=== PATIENT | male | born 1945 | race Caucasian/White ===

== ENCOUNTER → 2016-12-28 | Outpatient (CLI) | payer OTHER | LOC: MMPC 11:11 | PROVIDERS: ATTEND Internal Medicine | DX: J44.9 Chronic obstructive pulmonary disease, unspecified (principal); I10 Essential (primary) hypertension; J38.01 Paralysis of vocal cords and larynx, unilateral | CPT/HCPCS: 99213; G0463 ==

== ENCOUNTER 2019-05-18 12:17 | Inpatient (IN) ==
[2019-05-18] MEDS ORDERED: IPRATROPIUM/ALBUTEROL SULFATE 3 ML NEB NEB ONE (12:25)
[2019-05-18] MEDS ORDERED: Sodium Chloride 0.9% 1,000 ML PRIMARY IV ONE (12:25)
[2019-05-18 12:34] LABS: BASOPHILS # (AUTO) 0.02 10*3/UL; BASOPHILS % (AUTO) 0.2 % (0-1); EOSINOPHILS # (AUTO) 0.13 10*3/UL; EOSINOPHILS % (AUTO) 1.1 % (0-8); Hematocrit [HCT] 42.4 % (42.0-52.0); Hemoglobin [HGB] 14.5 g/dL (14.0-18.0); LYMPHOCYTES # (AUTO) 1.44 10*3/uL; MEAN CORPUSCULAR HGB CONC 34.2 g/dL (33-37); MEAN PLATELET VOLUME 11.4 FL (7.4-12.2); MONOCYTES # (AUTO) 1.49 10*3/UL (0.3-0.8); MONOCYTES % (AUTO) 12.8 % (5-15); NEUTROPHILS # (AUTO) 8.54 10*3/UL; NEUTROPHILS % (AUTO) 73.2 % (50-80); PLATELET MORPHOLOGY COMMENT NORMAL MORPHOLOGY (NORM); RBC MORPHOLOGY COMMENT NORMAL MORPHOLOGY (NORM); RED BLOOD COUNT 4.24 10^6/uL (4.70-6.10); WBC MORPHOLOGY COMMENT NORMAL MORPHOLOGY (NORM)
[2019-05-18 12:44] LABS: BUN/CREATININE RATIO 32.85 (6-20); SERUM ALBUMIN 4.4 g/dL (3.5-4.8)
[2019-05-18 12:55] LABS: VENOUS PH 7.33 (7.32-7.42)
--- NOTE | 2019-05-18 13:42 | EKG ---
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1945 Requested By: SERENA SPRINGER Order Number: [id number] Reading MD: Ji Singh Measurements Intervals [place] Rate: 141 P: GA: 0 QRS: 0 QRSD: 2 T: 258 QT: 300 QTc: 460 Interpretive Statements SINUS TACHYCARDIA WITH OCCASSIONAL VPCs LEFT ANTERIOR FASICULAR BLOCK POSSIBLE OLD ANTERIOR INFARCTION Compared to ECG 08/15/2018 15:07:31 Sinus rhythm no longer present Myocardial infarct finding still present present Electronically Signed On 05-18-2019 14:47:01 MDT by Ji Singh [id number]
[2019-05-18] MEDS ORDERED: LORazepam 2 MG/1 ML VIAL IVP ONE (14:02)
[2019-05-18] MEDS ORDERED: LIDOCAINE W/ SODIUM BICARB 0.5 ML SYR SUBD PRN (14:51)
[2019-05-18] MEDS ORDERED: ALBUTEROL SULFATE 2.5 MG/3 ML NEB PRN (14:51)
--- NOTE | 2019-05-18 15:43 | PDOC ---
HPI - History of Present Illness Date of Service: 05/18/19 Time of Service: 15:38 Chief Complaint: Cough and shortness of breath History of Present Illness: This is a very pleasant 74-year-old male with chronic left-sided vocal cord paralysis, COPD, tobacco abuse, who comes in stating today that he has had about 2 days of worsening shortness breath with cough. His cough is been more productive. He states it all started when he had received a notice from the city about his becky on the street or sidewalk that he had to cut back. He did that and it really left him taxed and tired. He notes that his shortness of breath has been progressive since then. Breathing treatments that he does at home have not helped. He is normally on oxygen at nighttime but did not try it during the day. He came in and was not found to be hypoxic in the emergency room, but felt oxygen administered was helping her feel better. He also felt that Ativan given in the emergency room helped him feel better as well. He had a chest x-ray that did not reveal any pneumonia. It was reported to me that he had a prior negative CTA workup for pulmonary embolism, but on my review of the record, he had a noncontrast CT scan of the chest done in September which did not reveal any acute findings in the lungs, but may have revealed possible soft tissue findings below the left vocal cord. I spoke with radiology regarding this, and it was felt that imaging was not best for the larynx and that we should consider repeating laryngoscopy. The patient does report a 7 pound weight loss over the last 6 months. I spoke with his and she feels that visually he looks more thin. The patient states he smokes 2 packs per day but quit 2 days ago. Past Medical History Medical History: 1. COPD with nocturnal oxygen requirement. 2. Left vocal cord paralysis, chronic. 3. Hypertension. 4. Hoarseness of voice, chronic Surgical History: Outside of laryngoscopy, the patient denies any prior surgical procedures. Pertinent Family History: He states his father had heart disease Past Social History: for 35 years, second marriage. Has children that are grown and described as healthy. Smokes 2 packs per day, drinks about half a pint of tequila daily. Tobacco Use: Current Every Day Smoker (2 packs per day) Do you dip or chew tobacco: No In the Past 12 Months, Have Used or Abuse Any of the Following Substance: None Alcohol Use: Heavy Medication / Allergies Home Medications: Home Medications Medication Instructions Recorded Confirmed RX: Benazepril HCl 1 tab PO DAILY #90 tab 04/30/16 benazepril 40 mg tablet 40 mg PO QDAY #90 tab 04/29/17 05/18/19 aspirin 81 mg tablet,delayed 81 mg PO QDAY tab 06/28/17 05/18/19 release cyanocobalamin (vit B-12) 2,500 2,500 mcg SL QDAY tab 06/28/17 05/18/19 mcg sublingual tablet multivitamin with iron-mineral 1 tab PO QDAY tab 06/28/17 05/18/19 tablet zolpidem 10 mg tablet 10 mg PO QHS #90 tab 03/13/19 05/18/19 RX: Atorvastatin Calcium 40 mg PO BEDTIME 05/18/19 05/18/19 Allergies/Adverse Reactions: Allergies Allergy/AdvReac Type Severity Reaction Status Date / Time No Known Allergies Allergy Verified 08/23/18 09:46 Review of Systems - Review of Systems All Systems: Reviewed & No Additional Complaints Except as Stated (I did a 12 point review systems and it was negative other than that discussed below and in the history of present illness.) - Constitutional Constitutional: REPORTS: Weight Loss (He thinks 7 pounds in the last 6 months.) - Respiratory Respiratory: REPORTS: Cough, Sputum, See HPI Exam - Vitals Vital Signs: Vital Signs Temperature 98.3 F Temperature Source Temporal Artery Scan Pulse Rate [Pulse Oximeter] 98 Pulse Rate 93 Respiratory Rate 201 Blood Pressure [Right Arm] 162/100 Blood Pressure [Left Arm] 177/96 Pulse Ox 99 Oxygen Flow Rate 3 Oxygen Delivery Method Nasal Cannula Height 5 ft 10 in Weight 133 lb 6.4 oz I'm having them retest the patient on room air to see if he is truly hypoxic on room air. - General General Appearance: No Acute Distress, Cooperative - Head Head Exam: Normal Inspection, Normocephalic, Atraumatic Additional Head Exam Details: Some signs of temporal wasting - Eye Eye Exam: POSITIVE: No Scleral Icterus - ENT ENT Exam: POSITIVE: Mucous Membranes Moist - Neck Neck Exam: No Tenderness, No Lymphadenopathy, No Thyromegaly, JVP is not Raised Additional Neck Exam Details: Very prominent anterior scalene muscles. - Respiratory Respiratory Exam: POSITIVE: Breathing Non Labored, Coarse Breath Sounds, Dull to Percussion - Cardiovascular Cardiovascular Exam: POSITIVE: RRR, No Murmur, No Clicks, No Gallops, No Rubs, No JVD - GI/Abdominal GI/Abdominal Exam: POSITIVE: Normal Bowel Sounds, Non Tender, Non Distended, Soft - Rectal Rectal Exam: POSITIVE: Deferred - External Exam: POSITIVE: Deferred Exam: POSITIVE: Deferred - Extremities Extremities Exam: POSITIVE: No Edema Present, No Cyanosis Present, Clubbing Present - Back Back Exam: POSITIVE: No CVA Tenderness - Neurological Neurological Exam: POSITIVE: Alert, Oriented x 3, No Facial Droop, Speech Intact / Clear, Moves All Extremities Equally - Psychiatric Psychiatric Exam: POSITIVE: Normal Affect, Normal Mood - Integumentary Integumentary Exam: POSITIVE: Normal Color, Warm, Dry, Intact Results - Labs CBC and BMP: 05/18/19 12:15 05/18/19 12:15 Additional Lab Results: Laboratory Results 05/18/19 05/18/19 05/18/19 12:15 12:15 12:15 WBC 11.65 H RBC 4.24 L Hgb 14.5 Hct 42.4 MCV 100.0 H MCH 34.2 H MCHC 34.2 RDW Std Deviation 47.9 RDW Coeff of Marco Antonio 13.3 Plt Count 296 MPV 11.4 Immature Gran % (Auto) 0.3 Neut % (Auto) 73.2 Lymph % (Auto) 12.4 [place] % (Auto) 12.8 Eos % (Auto) 1.1 Baso % (Auto) 0.2 Immature Gran # (Auto) 0.03 Neut # (Auto) 8.54 Lymph # (Auto) 1.44 [place]yer # (Auto) 1.49 H Eos # (Auto) 0.13 Baso # (Auto) 0.02 WBC Morphology Comment Normal morphology Plt Morphology Comment Normal morphology RBC Morph Comment Normal morphology D-Dimer VBG pH VBG pCO2 VBG HCO3 VBG Base Excess Sodium Potassium Chloride Carbon Dioxide Anion Gap BUN Creatinine Estimated GFR BUN/Creatinine Ratio Glucose Calculated Osmolality Calcium Total Bilirubin AST ALT Alkaline Phosphatase Troponin I < 0.012 C-Reactive Protein 1.2 H NT-Pro-B Natriuret Pep 289 Total Protein Albumin Globulin Albumin/Globulin Ratio 05/18/19 05/18/1919 12:15 12:15 12:44 WBC RBC Hgb Hct MCV MCH MCHC RDW Std Deviation RDW Coeff of Marco Antonio Plt Count MPV Immature Gran % (Auto) Neut % (Auto) Lymph % (Auto) [place]yer % (Auto) Eos % (Auto) Baso % (Auto) Immature Gran # (Auto) Neut # (Auto) Lymph # (Auto) [place]yer # (Auto) Eos # (Auto) Baso # (Auto) WBC Morphology Comment Plt Morphology Comment RBC Morph Comment D-Dimer 290 VBG pH 7.33 VBG pCO2 51 VBG HCO3 27 H VBG Base Excess 1 Sodium 135 Potassium 4.4 Chloride 100 Carbon Dioxide 26 Anion Gap 9 BUN 23 H Creatinine 0.7 Estimated GFR BUN/Creatinine Ratio 32.85 H Glucose 94 Calculated Osmolality 283.0 Calcium 9.8 Total Bilirubin 0.8 AST 31 ALT 22 Alkaline Phosphatase 66 Troponin I C-Reactive Protein NT-Pro-B Natriuret Pep Total Protein 7.8 Albumin 4.4 Globulin 3.4 Albumin/Globulin Ratio 1.20 L - EKG Data -: EKG Interpreted by Me Rate: Tachycardia EKG Shows Normal: Sinus Rhythm - EKG Data EKG Interpretation: Other (Occasional PVC) - Imaging Status: Image Reviewed by Me (chest x-ray, on my view, severe emphysema) Assessment and Plan - Patient Problems (1) COPD exacerbation Current Visit: Yes Status: Acute Code(s): J44.1 - Chronic obstructive pulmonary disease with (acute) exacerbation (2) Loss of weight Current Visit: Yes Status: Acute Code(s): R63.4 - Abnormal weight loss (3) Paralysis of vocal cords and larynx of one side Current Visit: Yes Status: Chronic Onset Date: 08/16/15 (4) Hoarseness of voice Current Visit: Yes Status: Chronic Onset Date: 04/30/16 Code(s): R49.0 - Dysphonia (5) Hypertension Current Visit: Yes Status: Chronic Onset Date: 12/28/11 Code(s): I10 - Essential (primary) hypertension Qualifiers: Hypertension type: essential hypertension Qualified Code(s): I10 - Essential (primary) hypertension (6) Sinus tachycardia Current Visit: Yes Status: Acute Code(s): R00.0 - Tachycardia, unspecified - Assessment / Plan Additional Assessment/Plan Details: admit inpatient The patient is on Trilogy so we'll continue that. Add albuterol as well. Zithromax 500 mg IV every 24 hours assess pneumovax and influenza vaccine status prednisone, 40 mg daily for 5 days oxygen to maintain oxygen saturations at 91% If CO2 retention, will consider BiPaP use if indicated clinically, but initial blood count shows a normal range CO2 level code status is DNR check CBC with diff in AM Respiratory panel negative if there is no improvement in patient condition, consider possibility of PE in this case, ruled out by CTA of chest, non-coronary--I will go ahead and get that now based on his sinus tachycardia with these symptoms despite a normal d-dimer. From risk stratification standpoint, 1 out of every 4 patients with COPD exacerbation and she has an underlying pulmonary embolism. smoking cessation education. Patient states he quit 2 days ago DVT prophylaxis chemical We'll try to arrange an outpatient visit with Dr. Petersen to repeat laryngoscopy to look at this area of concern on my review the CT scan in September 2018. We'll consider starting Cardizem for hypertension and tachycardia.
--- NOTE | 2019-05-18 15:51 | DI ---
CT CTA Chest Non-Coronary WWO,05/18/2019 3:10 PM: Clinical History: Shortness of breath, COPD question pulmonary embolism. Previous Exam: None at this facility. Findings: Multiple helically acquired CT images are obtained through the chest following intravenous administra tion of 65 cc of Omnipaque 300, and demonstrate mild diffuse COPD. This is unchanged from the prior e xam. The upper abdomen is unremarkable. Degenerative changes of the spine are seen. Pulmonary arteries are normal without filling defect or truncation to suggest pulmonary embolism. Impression: No evidence of pulmonary embolism. Stable COPD.
[2019-05-18] MEDS ORDERED: DILTIAZEM CD 180 MG CAP PO ONE (15:52)
[2019-05-18] MEDS: BENAZEPRIL HCL 20 MG TABLET PO SCH (16:35)
[2019-05-18] MEDS: predniSONE Tab 20 MG TAB PO SCH (16:36)
[2019-05-18] MEDS: ALBUTEROL SULFATE 2.5 MG/3 ML NEB SCH (19:09)
[2019-05-18] MEDS ORDERED: ZOLPIDEM 10 MG TABLET PO SCH (21:00)
[2019-05-18] MEDS ORDERED: ATORVASTATIN 40 MG TABLET PO SCH (21:00)
--- NOTE | 2019-05-19 03:52 | PDOC ---
Dyspnea HPI - General Chief Complaint: Dyspnea Stated Complaint: DYSPNEA Date Seen by Provider: 05/18/19 Time Seen by Provider: 12:15 Source: POSITIVE: Patient, Spouse, EMS Exam Limitations: POSITIVE: No limitations Treatment Prior to Arrival: REPORTS: Oxygen, Albuterol Neb Treatment Nurse's Notes Reviewed & Considered: Yes EMS Report Reviewed & Considered: Verbal - History of Present Illness Initial Comments: The patient is a 74-year-old male who arrives to the emergency room by ambulance. Ambulance was summoned by his . Patient complains of a 2-3 day history of progressive dyspnea. Patient does have a long-standing history of tobacco abuse and continues to smoke 1-1/2-2 packs of cigarettes per day. Patient states that he is on oxygen supplementation at night. Paramedics administered an albuterol treatment by nebulization. Patient states that he is on 2-1/2 L of oxygen at night. Patient has a history of partial vocal cord paralysis with chronic hoarseness. Patient states he has been evaluated by ENT for this problem and he states "they don't know why "he has partial vocal cord paralysis. Patient denies any chest pain. Mild mostly nonproductive cough. No fevers or chills. He denies any history of surgery. History of hypertension. Denies any known cardiac problems. Patient states that he "stopped smoking 2 days ago" because of his shortness of breath. Body Location Affected: REPORTS: Chest (Dyspnea) Timing: REPORTS: Gradual, Getting Worse Duration: >24 hours (2-3 days) Severity: Moderate Quality: REPORTS: Other (Patient denies any chest or other pain) Initiating Event: DENIES: Upper Respiratory Illness, Out of Medications, Sports, Exercise, Aspiration, Choking, Allergy, Exposure - Smoke, Exposure - Mold, Exposure - Other Allergen Context: REPORTS: Activity Exacerbated By: REPORTS: Exertion Associated Symptoms: DENIES: Fever, Chills, Sweating, Chest Pain, Chest Discomfort, Left Chest, Right Chest, Central Chest, Chest Heaviness, Chest Tightness, Painful Breathing, Radiation to Back, Radiation to Jaw, Radiation to Arm, Bloody Cough, Productive Cough, Heart Racing, Leg Pain, Calf Pain, Ankle Swelling, Leg Swelling, Dizziness, Light-Headedness, Anxiety, Tingling - Hands, Tingling - Face, Muscle Spasms - Hands, Muscle Spasms - Feet Similar Symptoms Previously: No Recently seen/treated/hospitalized: No Any Prior Injuries Related to Current Complaint?: No - Patient Home Medications Home Medications: Home Medications Benazepril HCl 1 tab PO DAILY #90 tab 04/30/16 benazepril 40 mg tablet 40 mg PO QDAY #90 tab 04/29/17 aspirin 81 mg tablet,delayed release 81 mg PO QDAY tab 06/28/17 cyanocobalamin (vit B-12) 2,500 mcg sublingual tablet 2,500 mcg SL QDAY tab 06/28/17 multivitamin with iron-mineral tablet 1 tab PO QDAY tab 06/28/17 zolpidem 10 mg tablet 10 mg PO QHS #90 tab 03/13/19 Atorvastatin Calcium 40 mg PO BEDTIME 05/18/19 - Patient Allergies Allergies/Adverse Reactions: Allergies Allergy/AdvReac Type Severity Reaction Status Date / Time No Known Allergies Allergy Verified 05/18/19 21:12 Past Medical History - heen HEENT History: Other (please comment) Additional HEENT History: Vocal cord paralyzed - hoarse throat. Cardiovascular History: Hypertension Respiratory History: Other (please comment) Additional Respiratory History: smoker, Gastrointestinal History: Denies History Genitourinary History: Denies History Endocrine History: Denies History Musculoskeletal History: Denies History Neurological History: Denies History Blood Disorders: Denies History Psychiatric History: Denies History History of Sexually Transmitted Diseases: No Male Reproductive History: Denies History Cancer History: Denies History In Past Year Been Physically Harmed or Verbally Threatened: No History of MDRO: No History of Other Communicable Diseases: No Tobacco Use: Current Every Day Smoker (2 packs per day) Type of alcohol normally used: Hard Liquor In the Past 12 Months, Have Used or Abuse Any Substance: None Previous Surgical History: Yes Type / Date of Surgery: left arm Significant Family History: No pertinent family hx Past Medical History Reviewed: Reviewed - No Changes ROS - Limitations ROS Limitations: No Limitations Constitution: REPORTS: Denies Symptoms Cardiovascular: REPORTS: Denies Cardiac Symptoms Respiratory: REPORTS: Shortness Of Breath Neurological: REPORTS: Denies Neuro Symptoms Gastrointestinal: REPORTS: Denies GI Symptoms Endocrine: REPORTS: Denies Symptoms Musculoskeletal: REPORTS: Denies MS Symptoms Genitourinary: REPORTS: Denies Symptoms ENT: REPORTS: Other (Chronic hoarseness due to partial vocal cord paralysis) Skin: REPORTS: Denies Skin Symptoms Lympathic: REPORTS: Denies Lympathic Symptoms Immunologic: POSITIVE: Denies Symptoms Psychiatric: POSITIVE: Denies Psych Symptoms Dyspnea Physical Exam - General Appearance General Appearance: REPORTS: Alert, Cooperative, No Acute Distress, No Evidence of Trauma - HEENT HEENT: POSITIVE: Head Inspection Nml, Eyes Inspection Nml, Ears Inspection Nml, Nose Inspection Nml, Oral/Dental Inspect. Nml, Pharynx Inspect. Nml, PERRL, EOMI - Neck Neck: REPORTS: Normal Inspection, No Carotid Bruit - Respiratory Respiratory: REPORTS: No Pleuritic Chest Pain, Speaks Full Sentences, No Pain on Inspiration, Decreased Air Movement. DENIES: Breath Sounds Normal (Breath sounds quite distant), Respiratory Distress, Fatigue, Wheezes, Rales, Rhonchi, Prolonged Expirations, Accessory Muscle Use, Retractions, Splinting, Dull on Percussion, Chest Wall Tenderness, Speaks Broken Sentences, Stridor, Respiratory Failure - Cardiovascular Cardiovascular: REPORTS: Regular Rate and Rhythm, Heart Sounds Normal, Equal Pulses, Strong Pulses, No Murmur, No Gallop, No Friction Rub, No JVD Peripheral Pulses: Radial (R): 2+, Radial (L): 2+ - Abdomen Abdomen: Soft: (All Quadrants), Normal Bowel Sounds: (All Quadrants), Denies Tenderness: (All Quadrants), No Splenomegaly: (All Quadrants), No Hepatomegaly: (All Quadrants), No Guarding: (All Quadrants), No Rebound: (All Quadrants), No Palpable Pulse: (All Quadrants), No Palpabale Mass: (All Quadrants), No Distention: (All Quadrants), No Rigidity: (All Quadrants) - Skin Skin: REPORTS: Intact, Normal For Race, Warm, Dry, No Rash - Extremities Extremity: Non-Tender: (All Extremities), Normal ROM: (All Extremities), Normal Inspection: (All Extremities) - Neurological / Psychological Neurological: POSITIVE: Affect Apporpriate, Oriented X3, basting cleaner Normal As Tested, Motor Normal, Sensation Normal Dyspnea Progress - Results Reviewed by me Xrays/CTs/US Reviewed by me: Yes Discussed with Radiologist: No Radiology Findings: Chest x-ray shows emphysema. Review of old records shows that the patient had a CT scan of the chest without contrast done 10/04/2018 which showed pulmonary artery hypertension, bolus emphysema and chronic interstitial fibrosis Lab Results Reviewed by Me: Yes CBC and BMP: 05/18/19 12:15 05/18/19 12:15 Lab Results:: Laboratory Results 05/18/19 05/18/19 05/18/19 12:15 12:15 12:15 WBC 11.65 H RBC 4.24 L Hgb 14.5 Hct 42.4 MCV 100.0 H MCH 34.2 H MCHC 34.2 RDW Std Deviation 47.9 RDW Coeff of Marco Antonio 13.3 Plt Count 296 MPV 11.4 Immature Gran % (Auto) 0.3 Neut % (Auto) 73.2 Lymph % (Auto) 12.4 [place] % (Auto) 12.8 Eos % (Auto) 1.1 Baso % (Auto) 0.2 Immature Gran # (Auto) 0.03 Neut # (Auto) 8.54 Lymph # (Auto) 1.44 [place] # (Auto) 1.49 H Eos # (Auto) 0.13 Baso # (Auto) 0.02 WBC Morphology Comment Normal morphology Plt Morphology Comment Normal morphology RBC Morph Comment Normal morphology D-Dimer VBG pH VBG pCO2 VBG HCO3 VBG Base Excess Sodium Potassium Chloride Carbon Dioxide Anion Gap BUN Creatinine Estimated GFR BUN/Creatinine Ratio Glucose Calculated Osmolality Calcium Total Bilirubin AST ALT Alkaline Phosphatase Troponin I < 0.012 C-Reactive Protein 1.2 H NT-Pro-B Natriuret Pep 289 Total Protein Albumin Globulin Albumin/Globulin Ratio 05/18/19 05/18/19 05/18/19 12:15 12:15 12:44 WBC RBC Hgb Hct MCV MCH MCHC RDW Std Deviation RDW Coeff of Marco Antonio Plt Count MPV Immature Gran % (Auto) Neut % (Auto) Lymph % (Auto) [place] % (Auto) Eos % (Auto) Baso % (Auto) Immature Gran # (Auto) Neut # (Auto) Lymph # (Auto) [place] # (Auto) Eos # (Auto) Baso # (Auto) WBC Morphology Comment Plt Morphology Comment RBC Morph Comment D-Dimer 290 VBG pH 7.33 VBG pCO2 51 VBG HCO3 27 H VBG Base Excess 1 Sodium 135 Potassium 4.4 Chloride 100 Carbon Dioxide 26 Anion Gap 9 BUN 23 H Creatinine 0.7 Estimated GFR BUN/Creatinine Ratio 32.85 H Glucose 94 Calculated Osmolality 283.0 Calcium 9.8 Total Bilirubin 0.8 AST 31 ALT 22 Alkaline Phosphatase 66 Troponin I C-Reactive Protein NT-Pro-B Natriuret Pep Total Protein 7.8 Albumin 4.4 Globulin 3.4 Albumin/Globulin Ratio 1.20 L - Patient's Progress Pain Medication Addressed: POSITIVE: Not Applicable School/Work Release Addressed: POSITIVE: Not Applicable Re-Examine Time: 13:30 Re-Examine Comment: Patient given a DuoNeb nebulizer treatment in the emergency room without much effect. Patient quite anxious and patient given a milligram of Ativan. Patient and advised of radiologic and laboratory studies. 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 Case discussed with hospitalist on-call, who has admitted the patient for further evaluation and treatment. Status: POSITIVE: Unchanged, Re-Examined Air Movement: POSITIVE: Fair - Consult Consulting MD will see pt:: POSITIVE: [facility] [place] Admit Counseled: POSITIVE: Patient, Family (), RE: Lab Results, RE: Radiology Results, RE: DX, RE: Need for F/U Patient Care Time - Estimated PCT Patient Care Time (In Minutes): 55 Vital Signs - VS Reviewed Vital Signs Reviewed: Yes Discharge Clinical Impression: Chronic obstructive lung disease Discharge Disposition: Admit to Inpatient Condition: Stable Patient Problem(s) Reviewed: Yes Date Decision to Admit to Inpatient: 05/18/19 Time Decision to Admit to Inpatient: 13:30
[2019-05-19 04:46] LABS: VENOUS PCO2 43.8 mmHg (45-55); VENOUS PH 7.36 (7.32-7.42)
[2019-05-19 05:04] LABS: BASOPHILS # (AUTO) 0 10*3/UL; BASOPHILS % (AUTO) 0 % (0-1); EOSINOPHILS # (AUTO) 0 10*3/UL; EOSINOPHILS % (AUTO) 0 % (0-8); Hematocrit [HCT] 34.5 % (42.0-52.0); Hemoglobin [HGB] 11.9 g/dL (14.0-18.0); LYMPHOCYTES # (AUTO) 0.77 10*3/uL; MEAN CORPUSCULAR HGB CONC 34.5 g/dL (33-37); MEAN CORPUSCULAR VOLUME 100.3 FL (80-90); MEAN PLATELET VOLUME 11.2 FL (7.4-12.2); MONOCYTES # (AUTO) 0.72 10*3/UL (0.3-0.8); MONOCYTES % (AUTO) 14.1 % (5-15); NEUTROPHILS # (AUTO) 3.62 10*3/UL; NEUTROPHILS % (AUTO) 70.7 % (50-80); RED BLOOD COUNT 3.44 10^6/uL (4.70-6.10)
[2019-05-19 05:19] LABS: PLATELET MORPHOLOGY COMMENT NORMAL MORPHOLOGY (NORM); RBC MORPHOLOGY COMMENT NORMAL MORPHOLOGY (NORM); WBC MORPHOLOGY COMMENT NORMAL MORPHOLOGY (NORM)
[2019-05-19 05:20] LABS: BLOOD UREA NITROGEN 21 mg/dL (7-22)
[2019-05-19] MEDS: ALBUTEROL SULFATE 2.5 MG/3 ML NEB SCH ×4 (06:28→14:33)
[2019-05-19] MEDS ORDERED: UMECLIDIN INH SCH (07:00)
[2019-05-19] MEDS ORDERED: FLUTICASONE INH SCH (07:00)
[2019-05-19] MEDS ORDERED: VILANTER INH SCH (07:00)
[2019-05-19] MEDS ORDERED: Multivitamin Tab 1 TAB PO SCH (09:00)
[2019-05-19] MEDS ORDERED: CYANOCOBALAMIN (VITAMIN B-12) 1,000 MCG TABLET.ER PO SCH (09:00)
[2019-05-19] MEDS ORDERED: ENOXAPARIN SODIUM 40 MG/0.4 ML SYRINGE SUBCUT SCH (09:00)
[2019-05-19] MEDS ORDERED: DILTIAZEM CD 180 MG CAP PO SCH (09:00)
[2019-05-19] MEDS: BENAZEPRIL HCL 20 MG TABLET PO SCH (09:28)
[2019-05-19] MEDS: predniSONE Tab 20 MG TAB PO SCH (09:28)
[2019-05-19 12:30] VITALS: BP 123/48; TEMP 98.2
[2019-05-19 14:34] VITALS: RESP 18
--- NOTE | 2019-05-19 14:49 | DI ---
PA /LATERAL CHEST, 05/18/2019 12:50 PM : Clinical History: Dyspnea. Previous Exam: 08/15/2018. Soft Tissues: No acute soft tissue abnormality. Bones: Compression fracture of T12, unchanged from the prior exam. Osteoporosis. Heart: Heart Size: Normal. Vascular Pedicle Width: Normal. Azygous Vein: Normal size. Vascular Flow P attern:Normal. Pulmonary Arteries: Mild pulmonary arterial hypertension. Lungs: No infiltrates. Centrilobular emphysema. Interstitial Johnathan B lines present in the costophren ic angles indicating chronic interstitial pulmonary fibrosis. Effusion(s): None. Mediastinum: Normal. Nodules: No pulmonary nodules. Readin. No acute infiltrate or effusion. 2. Centrilobular emphysema with chronic interstitial pulmonary fibrosis and mild pulmonary arterial hypertension. 3. Severe osteoporosis.
[2019-05-19] MEDS ORDERED: ASPIRIN EC 81 MG TABLET PO SCH (16:00)
--- NOTE | 2019-05-19 16:09 | DCSUMMARY ---
Hospitalization Summary Admit Date: 05/18/2019 Discharge Date: 05/19/19 Primary Diagnosis:: COPD exacerbation, improved Hospital Course: This very pleasant 74 year male with unknown left vocal cord paralysis, chronic, long-term smoker 2 packs per day, states he quit 2 days ago, who came in with shortness breath and cough. His cough is been a little more productive. He was not hypoxic in the emergency room but because of his shortness of breath, increased from production, human 2 out of 3 criteria for severe COPD exacerbation and he was admitted. I initially thought that he would need an inpatient stay at 48 hours, but he has nocturnal oxygen at home and he was very insistent to go home today. Although I would like to keep him overnight, my feeling overall a set patient likely wouldn't stay regardless of my recommendations and so we devised a plan to give him one more dose of IV Zithromax today, he said prednisone today. He'll do 5 days total of Zithromax 500 mg daily, and prednisone at 40 mg daily for a total of 5 days. 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 I spoke to the radiologist and it was their feeling that in order to definitively find out whether or not there was a mass, the patient would need direct laryngoscopy. We set up an appointment with gear hobber operator here. The patient was at intermediate risk for pulmonary emboli, and based on this, we proceeded to do CT scan and see CTA) to look for blood clot. It was negative. The CT scan done in September was a noncontrast study. Today, no complaints of chest pain, shortness of breath, nausea or vomiting, the patient would like to go home. Assessment and Plan: 1. As per discharge assessments noted 2. Disposition: Patient is discharged home. 3. Condition on discharge, stable and improved. 4. Diet: regular diet 5. Activities: resume normal activities, and recommend oxygen at all times for the next week or so 6. Follow-Up: 1. Dr. Harrington next week 2. Ear, Nose and throat and the next couple weeks 7. Medications at the Time of Discharge: 8. Time, care, counseling and coordination of care for this discharge is greater than 30 minutes. This report was transcribed using [employer] voice recognition. Despite editing, there may be grammatical and/or typographical errors in this traffic i manager report due to the limitations inherent with voice activated and speech recognition software.e Exam - Vitals Vital Signs: Vital Signs Temperature 98.2 F Temperature Source Oral Pulse Rate [Pulse Oximeter] 90 Pulse Rate [forehead] 90 Pulse Rate 84 Respiratory Rate 18 Blood Pressure [Right Arm] 123/48 Blood Pressure [Left Arm] 146/73 Pulse Ox [forehead] 90 Pulse Ox 96 Oxygen Flow Rate [forehead] 1 Oxygen Flow Rate 2 Oxygen Delivery Method [ Nasal Cannula forehead] Oxygen Delivery Method Room Air Height 5 ft 10 in Weight 133 lb - General General Appearance: No Acute Distress, Cooperative - Head Head Exam: Normal Inspection, Normocephalic, Atraumatic - Eye Eye Exam: POSITIVE: No Scleral Icterus - ENT ENT Exam: POSITIVE: Mucous Membranes Moist - Neck Neck Exam: JVP is not Raised - Respiratory Respiratory Exam: POSITIVE: Breathing Non Labored, Decreased Breath Sounds - Cardiovascular Cardiovascular Exam: POSITIVE: RRR, No Murmur, No Clicks, No Gallops, No Rubs, No JVD - GI/Abdominal GI/Abdominal Exam: POSITIVE: Normal Bowel Sounds, Non Tender, Non Distended, Soft - Extremities Extremities Exam: POSITIVE: No Edema Present, No Cyanosis Present, Clubbing Present Additional Extremities Exam Details: Has palmar erythema - Neurological Neurological Exam: POSITIVE: Alert, Oriented x 3, No Facial Droop, Speech Intact / Clear, Moves All Extremities Equally Data Peritnent Studies: Laboratory Results 05/19/19 05/19/19 05/19/19 04:30 04:30 04:36 WBC 5.12 RBC 3.44 L Hgb 11.9 L Hct 34.5 L MCV 100.3 H MCH 34.6 H MCHC 34.5 RDW Std Deviation 47.4 RDW Coeff of Marco Antonio 13.3 Plt Count 248 MPV 11.2 Immature Gran % (Auto) 0.2 Neut % (Auto) 70.7 Lymph % (Auto) 15.0 Lassen % (Auto) 14.1 Eos % (Auto) 0 Baso % (Auto) 0 Immature Gran # (Auto) 0.01 Neut # (Auto) 3.62 Lymph # (Auto) 0.77 Lassen # (Auto) 0.72 Eos # (Auto) 0 Baso # (Auto) 0 WBC Morphology Comment Normal morphology Plt Morphology Comment Normal morphology RBC Morph Comment Normal morphology VBG pH 7.36 VBG pCO2 43.8 L VBG HCO3 24.9 VBG Base Excess 0 Sodium 131 L Potassium 4.9 Chloride 100 Carbon Dioxide 24 Anion Gap 7 BUN 21 Creatinine 0.6 L Estimated GFR Connie Cleaner BUN/Creatinine Ratio 35.00 H Glucose 121 H Calculated Osmolality 275.0 Calcium 9.2 Procedures: [address] [facility] [place] [address] PH: [phone]: [phone] FAX: [phone] ~DIAGNOSTIC IMAGING REPORT~ Patient: Rexius,Jorge A L : 1945 Sex: M Age: 74 Exam Name: CT CTA Chest Non-Coronary WWOExam Date: 05/18/19 Report # : [id number] CPT Code: 98071 EMR/MR #: [id number] Ordering: RAMIRO RUEDA Admiting: RAMIRO RUEDA DO Primary: Fidel Harrington MD Attending: RAMIRO RUEDA DO Signed CT CTA Chest Non-Coronary WWO,05/18/2019 3:10 PM: Clinical History: Shortness of breath, COPD question pulmonary embolism. Previous Exam: None at this facility. Findings: Multiple helically acquired CT images are obtained through the chest following intravenous administration of 65 cc of Omnipaque 300, and demonstrate mild diffuse COPD. This is unchanged from the prior exam. The upper abdomen is unremarkable. Degenerative changes of the spine are seen. Pulmonary arteries are normal without filling defect or truncation to suggest pulmonary embolism. Impression: No evidence of pulmonary embolism. Stable COPD. Dictated By: 05/18/19 1544 HERMELINDA FELIX MD. Signed By: 05/18/19 1551 HERMELINDA FELIX MD. Patient Problems - Patient Problem List (1) COPD exacerbation Current Visit: Yes Status: Acute Code(s): J44.1 - Chronic obstructive pulmonary disease with (acute) exacerbation Category: Medical (2) Loss of weight Current Visit: Yes Status: Acute Code(s): R63.4 - Abnormal weight loss Category: Medical (3) Paralysis of vocal cords and larynx of one side Current Visit: Yes Status: Chronic Onset Date: 08/16/15 Comment: left Category: Medical (4) Hoarseness of voice Current Visit: Yes Status: Chronic Onset Date: 04/30/16 Code(s): R49.0 - Dysphonia Category: Medical (5) Hypertension Current Visit: Yes Status: Chronic Onset Date: 12/28/11 Code(s): I10 - Essential (primary) hypertension Qualifiers: Hypertension type: essential hypertension Qualified Code(s): I10 - Essential (primary) hypertension Category: Medical (6) Sinus tachycardia Current Visit: Yes Status: Acute Code(s): R00.0 - Tachycardia, unspecified Category: Medical (7) Laryngeal mass Current Visit: Yes Status: Suspected Code(s): J38.7 - Other diseases of larynx Category: Medical
[2019-05-19 17:45] VITALS: O2SAT 93
== END 2019-05-19 04:35 | disposition home or self-care (01) | DRG 192 ==
LOC: ER 12:17 → MED/SURG 12:17 → OBSVTOIN 14:03 → MED/SURG 14:20
PROVIDERS: ADMIT Family Medicine; ATTEND Family Medicine

== ENCOUNTER 2019-06-05 10:53 | Inpatient (IN) ==
[2019-06-05] MEDS ORDERED: IPRATROPIUM/ALBUTEROL SULFATE 3 ML NEB NEB ONE (10:59)
[2019-06-05] MEDS ORDERED: DOXYCYCLINE HYCLATE 100 MG CAPSULE PO ONE (11:03)
[2019-06-05] MEDS ORDERED: methylPREDNISolone 125 MG/2 ML VIAL IVP ONE (11:03)
[2019-06-05 11:08] LABS: BASOPHILS # (AUTO) 0.02 10*3/UL; BASOPHILS % (AUTO) 0.2 % (0-1); EOSINOPHILS # (AUTO) 0.11 10*3/UL; Hematocrit [HCT] 39.4 % (42.0-52.0); Hemoglobin [HGB] 13.5 g/dL (14.0-18.0); LYMPHOCYTES # (AUTO) 1.59 10*3/uL; MEAN CORPUSCULAR HGB CONC 34.3 g/dL (33-37); MONOCYTES # (AUTO) 1.43 10*3/UL (0.3-0.8); MONOCYTES % (AUTO) 13.1 % (5-15); NEUTROPHILS # (AUTO) 7.74 10*3/UL; NEUTROPHILS % (AUTO) 70.9 % (50-80)
[2019-06-05 11:09] LABS: PLATELET MORPHOLOGY COMMENT NORMAL MORPHOLOGY (NORM); RBC MORPHOLOGY COMMENT NORMAL MORPHOLOGY (NORM); WBC MORPHOLOGY COMMENT NORMAL MORPHOLOGY (NORM)
[2019-06-05 11:17] LABS: SERUM ALBUMIN 4.1 g/dL (3.5-4.8)
[2019-06-05 11:40] LABS: VENOUS PH 7.33 (7.32-7.42)
[2019-06-05] MEDS ORDERED: ALBUTEROL SULFATE 2.5 MG/3 ML NEB PRN ×2 (14:09→17:55)
[2019-06-05] MEDS ORDERED: LIDOCAINE W/ SODIUM BICARB 0.5 ML SYR SUBD PRN ×2 (14:09→17:55)
[2019-06-05] MEDS ORDERED: LORazepam 1 MG TABLET PO PRN (14:47)
[2019-06-05] MEDS ORDERED: IPRATROPIUM/ALBUTEROL SULFATE 3 ML NEB NEB SCH (15:00)
[2019-06-05] MEDS ORDERED: CLONAZEPAM 0.25 MG PO SCH (15:00)
[2019-06-05] MEDS ORDERED: DILTIAZEM HCL CD 120 MG CAP PO SCH (16:45)
[2019-06-05] MEDS ORDERED: methylPREDNISolone 125 MG/2 ML VIAL IVP SCH (17:00)
[2019-06-05] MEDS ORDERED: Sodium Chloride 0.9% 1,000 ML PRIMARY IV ONE (17:55)
[2019-06-05] MEDS ORDERED: Sodium Chloride 0.9% 100 ML IV ONE (17:58)
[2019-06-05] MEDS ORDERED: DILTIAZEM HCL 125mg/25 ml vial IV ONE (17:58)
[2019-06-05] MEDS: Diltiazem Drip 125 MG in Sodium Chloride 0.9% 100 ML IV SCH (18:07)
[2019-06-05] MEDS: ENOXAPARIN SODIUM 60 MG/0.6 ML SYRINGE SUBCUT SCH (18:35)
[2019-06-05] MEDS: IPRATROPIUM/ALBUTEROL SULFATE 3 ML NEB NEB SCH (19:09)
[2019-06-05] MEDS ORDERED: ZOLPIDEM 10 MG TABLET PO SCH ×2 (21:00)
[2019-06-05] MEDS ORDERED: DOXYCYCLINE HYCLATE 100 MG CAPSULE PO SCH (21:00)
[2019-06-05] MEDS: DOXYCYCLINE HYCLATE 100 MG CAPSULE PO SCH (21:50)
[2019-06-05] MEDS: methylPREDNISolone 125 MG/2 ML VIAL IVP SCH (23:00)
[2019-06-06] MEDS: LORazepam 1 MG TABLET PO PRN ×2 (02:50→11:44)
[2019-06-06 04:59] LABS: BASOPHILS # (AUTO) 0 10*3/UL; BASOPHILS % (AUTO) 0 % (0-1); EOSINOPHILS # (AUTO) 0 10*3/UL; EOSINOPHILS % (AUTO) 0 % (0-8); Hematocrit [HCT] 34.8 % (42.0-52.0); Hemoglobin [HGB] 11.7 g/dL (14.0-18.0); LYMPHOCYTES # (AUTO) 0.46 10*3/uL; MEAN CORPUSCULAR HGB CONC 33.6 g/dL (33-37); MEAN CORPUSCULAR VOLUME 102.1 FL (80-90); MEAN PLATELET VOLUME 11.2 FL (7.4-12.2); MONOCYTES # (AUTO) 0.21 10*3/UL (0.3-0.8); MONOCYTES % (AUTO) 1.9 % (5-15); NEUTROPHILS # (AUTO) 10.21 10*3/UL; NEUTROPHILS % (AUTO) 93.7 % (50-80); RED BLOOD COUNT 3.41 10^6/uL (4.70-6.10)
[2019-06-06 05:04] LABS: PLATELET MORPHOLOGY COMMENT NORMAL MORPHOLOGY (NORM); RBC MORPHOLOGY COMMENT NORMAL MORPHOLOGY (NORM); WBC MORPHOLOGY COMMENT NORMAL MORPHOLOGY (NORM)
[2019-06-06] MEDS: methylPREDNISolone 125 MG/2 ML VIAL IVP SCH ×4 (05:31→23:10)
[2019-06-06] MEDS: ENOXAPARIN SODIUM 60 MG/0.6 ML SYRINGE SUBCUT SCH (05:31)
[2019-06-06] MEDS: Diltiazem Drip 125 MG in Sodium Chloride 0.9% 100 ML IV SCH (05:54)
[2019-06-06] MEDS: IPRATROPIUM/ALBUTEROL SULFATE 3 ML NEB NEB SCH ×4 (06:46→19:23)
[2019-06-06] MEDS ORDERED: FLUTICASONE INH SCH (07:00)
[2019-06-06] MEDS ORDERED: FLUTICASONE PO SCH (07:00)
[2019-06-06] MEDS ORDERED: UMECLIDIN INH SCH (07:00)
[2019-06-06] MEDS ORDERED: VILANTER INH SCH (07:00)
[2019-06-06] MEDS ORDERED: UMECLIDIN PO SCH (07:00)
[2019-06-06] MEDS ORDERED: VILANTER PO SCH (07:00)
[2019-06-06] MEDS ORDERED: BENAZEPRIL HCL 20 MG TABLET PO SCH ×2 (09:00)
[2019-06-06] MEDS ORDERED: DILTIAZEM HCL CD 120 MG CAP PO SCH ×2 (09:00)
[2019-06-06] MEDS ORDERED: ENOXAPARIN SODIUM 40 MG/0.4 ML SYRINGE SUBCUT SCH (09:00)
[2019-06-06] MEDS ORDERED: CYANOCOBALAMIN (VITAMIN B-12) 1,000 MCG TABLET.ER PO SCH ×2 (09:00)
[2019-06-06] MEDS ORDERED: ASPIRIN EC 81 MG TABLET PO SCH ×2 (09:00)
[2019-06-06] MEDS ORDERED: Multivitamin Tab 1 TAB PO SCH ×2 (09:00)
[2019-06-06] MEDS: DOXYCYCLINE HYCLATE 100 MG CAPSULE PO SCH ×2 (09:15→21:20)
[2019-06-06] MEDS ORDERED: ALBUTEROL SULFATE 2.5 MG/3 ML NEB PRN (12:14)
[2019-06-06] MEDS ORDERED: LORazepam 1 MG TABLET PO PRN (12:14)
[2019-06-06] MEDS ORDERED: ZOLPIDEM 10 MG TABLET PO SCH (21:00)
[2019-06-07] MEDS: methylPREDNISolone 125 MG/2 ML VIAL IVP SCH ×2 (05:53→11:21)
[2019-06-07] MEDS ORDERED: VILANTER INH SCH (07:00)
[2019-06-07] MEDS ORDERED: UMECLIDIN INH SCH (07:00)
[2019-06-07] MEDS ORDERED: FLUTICASONE INH SCH (07:00)
[2019-06-07] MEDS: IPRATROPIUM/ALBUTEROL SULFATE 3 ML NEB NEB SCH ×3 (07:54→15:07)
[2019-06-07] MEDS: DOXYCYCLINE HYCLATE 100 MG CAPSULE PO SCH (08:02)
[2019-06-07] MEDS ORDERED: CYANOCOBALAMIN (VITAMIN B-12) 1,000 MCG TABLET.ER PO SCH (09:00)
[2019-06-07] MEDS ORDERED: Multivitamin Tab 1 TAB PO SCH (09:00)
[2019-06-07] MEDS ORDERED: ASPIRIN EC 81 MG TABLET PO SCH (09:00)
[2019-06-07] MEDS ORDERED: BENAZEPRIL HCL 20 MG TABLET PO SCH (09:00)
[2019-06-07 11:17] VITALS: RESP 20
[2019-06-07 12:16] VITALS: BP 136/55; TEMP 97
[2019-06-07 14:45] VITALS: O2SAT 94
== END 2019-06-07 16:10 | disposition home or self-care (01) | DRG 191 ==
LOC: ER 10:53 → MED/SURG 13:58 → ICU 17:31 → MED/SURG 06-06 12:00
PROVIDERS: ADMIT Family Medicine; ATTEND Family Medicine